=== PATIENT | male | born 1970 | race Two or more races ===

== ENCOUNTER → 2017-12-11 | Outpatient (CLI) | payer OTHER ==
[~2017-12-11] MED LIST: ASPI81TA27 PO; ATOR20TA50 PO; CARV12.544 PO; CHOL100079 OR; CLOP75TA41 PO; LOSA25TA40 PO; NITR0.4S29 SL
== END | disposition home or self-care (01) ==
LOC: Rad HDHVI 09:00
PROVIDERS: ATTEND Internal Medicine Cardiovascular Disease
DX: I25.110 Atherosclerotic heart disease of native coronary artery with unstable angina pectoris (principal); E78.5 Hyperlipidemia, unspecified; I48.0 Paroxysmal atrial fibrillation
CPT/HCPCS: 93306; 93880

== ENCOUNTER 2018-12-25 21:54 | Inpatient (IN) | payer OTHER ==
[~2018-12-25] VITALS: Ht 190.5 cm; Wt 124.9 kg
[~2018-12-25 21:54] MED LIST changes: +ASPI-404 PO; -ASPI81TA27 PO; +LOSA25TA38 PO; -LOSA25TA40 PO
[2018-12-25 22:36] LABS: Basophils # (auto) 0 uL; Basophils % (auto) 0.3 % (0.0-2.0); Eosinophils # (auto) 0.1 uL; Eosinophils % (auto) 1.1 % (0.0-7.0); Hematocrit 44.8 % (41.0-53.0); Hemoglobin 15.5 g/dL (13.5-17.5); Lymphocytes # (auto) 2.9 uL; Lymphocytes % (auto) 33.9 % (10.0-50.0); Mean Corpuscular Hemoglobin 33.8 pg (28.0-32.0); Mean Corpuscular Hgb Conc. 34.7 g/dL (32.0-36.0); Mean Corpuscular Volume 97.5 fL (80.0-100.0); Monocytes # (auto) 0.6 uL; Monocytes % (auto) 7.3 % (0.0-12.0); Neutrophils # (auto) 4.9 uL; Neutrophils % (auto) 57.4 % (37.0-80.0); Nucleated Red Blood Cells % 0.1 %; Platelet Count (auto) 265 10^3/uL (140-450); Red Blood Cells 4.59 10^6/uL (4.5-5.90); White Blood Cell 8.6 10^3/uL (4.4-10.8)
[2018-12-25 22:52] LABS: Albumin 3.7 g/dL (3.4-5.0); Anion Gap 9 (5-15); Blood Urea Nitrogen 12 mg/dL (7-18); Calcium 8.8 mg/dL (8.5-10.1); Carbon Dioxide 23 mmol/L (21-32); Chloride 106 mmol/L (98-107); Glucose 180 mg/dL (74-106); Potassium 3.5 mmol/L (3.5-5.1); Sodium 138 mmol/L (136-145)
[2018-12-25 22:58] LABS: Alanine Aminotransferase 60 U/L (16-61); Alkaline Phosphatase 65 U/L (45-117); Aspartate Aminotransferase 22 U/L (15-37); GFR African American 122 mL/min; GFR Non-African American 100 mL/min; Total Protein 7.4 g/dL (6.4-8.2)
[2018-12-25 23:27] LABS: INR 1.01 (0.9-1.15)
[2018-12-26] MEDS ORDERED: CLOPIDOGREL BISULFATE 75 MG TAB PO ONE (12:45)
--- NOTE | 2018-12-26 14:05 | NUR ---
RECEIVED REPORT FROM RAVEN LOPEZ.
--- NOTE | 2018-12-26 14:25 | NUR ---
Telemetry admit from [facility] admitted to Telemetry unit after SBAR received. Patient oriented to MOUNIKA REDDING, primary RN, unit, room, bed, and unit policies regarding patient care and visiting hours. Patient now on continuous telemetry monitoring, tele box # 11 and telemetry reading on arrival to unit is SINUS RHYTHM. Patient placed on bedside oxygen, weighed by bedscale and encouraged to call if they need something. All questions and concerns addressed, patient verbalized understanding.
[2018-12-26 17:00] VITALS: BP 137/68
--- NOTE | 2018-12-26 20:03 | NUR ---
PLACED CALL TO DR. GUO FOR PAIN MEDS. AWAITING CALL BACK.
[2018-12-26] MEDS: HYDROcodone-ACET 10/325MG TAB PO PRN (20:42)
[2018-12-26] MEDS: PANTOPRAZOLE 40 MG TAB PO SCH (21:41)
[2018-12-26] MEDS: CARVEDILOL 3.125 MG TAB PO SCH (21:42)
[2018-12-26 22:00] VITALS: BP 126/73
[2018-12-27 06:04] VITALS: BP 129/82
--- NOTE | 2018-12-27 08:25 | NUR ---
Opening Note Assumed care of patient, he is A & O x 4, no s/s of distress. Patient is otherwise comfortable at this time. POC discussed. Bed is in lowest, locked position, call light within reach. Will continue to monitor Q1h and PRN.
[2018-12-27 09:00] VITALS: BP 121/62
[2018-12-27] MEDS: ASPirin-EC 81 mg tab PO SCH (09:41)
[2018-12-27] MEDS: PANTOPRAZOLE 40 MG TAB PO SCH ×2 (09:41→21:53)
[2018-12-27] MEDS: LISINOPRIL 5 MG TAB PO SCH (09:42)
[2018-12-27] MEDS: ENOXAPARIN SOD 40 MG/0.4 ML SYRINGE SC SCH (09:42)
[2018-12-27] MEDS: CARVEDILOL 3.125 MG TAB PO SCH ×2 (09:43→21:52)
[2018-12-27] MEDS: HYDROcodone-ACET 10/325MG TAB PO PRN ×2 (09:45→21:55)
[2018-12-27] MEDS ORDERED: PANTOPRAZOLE 40 MG TAB PO SCH (10:00)
--- NOTE | 2018-12-27 12:40 | NUR ---
Dr. Morgan at bedside. Requesting medical records from [facility], Echo and Angiogram results.
[2018-12-27 13:00] VITALS: BP 128/67
--- NOTE | 2018-12-27 15:00 | NUR ---
[place] [facility] [place]
[2018-12-27 17:00] VITALS: BP 104/62
--- NOTE | 2018-12-27 19:00 | NUR ---
Opening Shift Note Assumed care of patient, awake and alert. No S/S of distress/SOB or pain. Instructed on POC and to call for assist PRN, will continue to monitor for changes Q1hr and PRN.
[2018-12-27] MEDS: ATORVASTATIN 20 MG TAB PO SCH (21:53)
[2018-12-27 22:00] VITALS: BP 123/74
--- NOTE | 2018-12-28 00:30 | NUR ---
Continuation Of Care Assumed care of patient, eyes closed, respirations even and unlabored, appears asleep. Bed in lowest locked position, side rails up x2, call light within reach, guards at beside. No S/S of distress/SOB or pain. Instructed on POC and to call for assist PRN, will continue to monitor for changes Q1hr and PRN.
--- NOTE | 2018-12-28 00:30 | NUR ---
Endorsed care to Alejandra CARBAJAL.
[2018-12-28 05:00] VITALS: BP 121/69
--- NOTE | 2018-12-28 06:27 | NUR ---
Closing Note Patient lying in bed, eyes closed, respirations even and unlabored, appears asleep. Patient awakens to name and touch. No s/s of distress. Bed in lowest locked position, side rails up x2, call light within reach, guards at bedside. Will continue to monitor and endorse care to dayshift RN.
[2018-12-28 09:00] VITALS: BP 124/69
[2018-12-28] MEDS: CARVEDILOL 3.125 MG TAB PO SCH ×2 (09:24→21:33)
[2018-12-28] MEDS: LISINOPRIL 5 MG TAB PO SCH (09:24)
[2018-12-28] MEDS: ASPirin-EC 81 mg tab PO SCH (09:24)
[2018-12-28] MEDS: PANTOPRAZOLE 40 MG TAB PO SCH ×2 (09:25→21:34)
[2018-12-28] MEDS: ENOXAPARIN SOD 40 MG/0.4 ML SYRINGE SC SCH (09:25)
[2018-12-28] MEDS ORDERED: METOPROLOL TARTRATE 25 MG TAB PO SCH (10:00)
[2018-12-28 13:00] VITALS: BP 132/67
[2018-12-28 17:00] VITALS: BP 115/74
[2018-12-28] MEDS: HYDROcodone-ACET 10/325MG TAB PO PRN (19:21)
[2018-12-28] MEDS: ATORVASTATIN 20 MG TAB PO SCH (21:34)
[2018-12-28 22:00] VITALS: BP 105/64
--- NOTE | 2018-12-28 23:33 | NUR ---
Dr. Morgan at patient bedside. Patient updated on plan of care.
[2018-12-29 05:00] VITALS: BP 101/58
[2018-12-29 08:10] VITALS: BP 140/71
[2018-12-29 09:00] VITALS: BP 140/71
[2018-12-29] MEDS: PANTOPRAZOLE 40 MG TAB PO SCH ×2 (09:47→21:55)
[2018-12-29] MEDS: CARVEDILOL 3.125 MG TAB PO SCH ×2 (09:47→21:56)
[2018-12-29] MEDS: ASPirin-EC 81 mg tab PO SCH (09:47)
[2018-12-29] MEDS: LISINOPRIL 5 MG TAB PO SCH (09:48)
[2018-12-29] MEDS: ENOXAPARIN SOD 40 MG/0.4 ML SYRINGE SC SCH (09:48)
[2018-12-29 13:00] VITALS: BP 109/65
[2018-12-29 15:40] LABS: INR 1.04 (0.9-1.15); Partial Thromboplastin Time 28.8 sec (23.64-32.05)
[2018-12-29 17:00] VITALS: BP 152/88
--- NOTE | 2018-12-29 19:07 | NUR ---
Endorsed care to NOC RN.
--- NOTE | 2018-12-29 20:29 | NUR ---
IV insertion IV access to right hand obtained, via clean sterile technique by inserting 20 gauge catheter after first attempt. IV secured properly. No trauma to site. Patient tolerated procedure well.
[2018-12-29] MEDS: ATORVASTATIN 20 MG TAB PO SCH (21:55)
[2018-12-29 21:56] VITALS: BP 115/74
[2018-12-30 05:00] VITALS: BP 138/85
[2018-12-30] MEDS: ASPirin-EC 81 mg tab PO SCH (07:47)
[2018-12-30] MEDS: CARVEDILOL 3.125 MG TAB PO SCH (07:47)
[2018-12-30] MEDS: LISINOPRIL 5 MG TAB PO SCH (07:48)
[2018-12-30 08:02] VITALS: BP 122/61
[2018-12-30 09:00] VITALS: BP 122/61
[2018-12-30 09:25] VITALS: BP 122/61
[2018-12-30] MEDS: ENOXAPARIN SOD 40 MG/0.4 ML SYRINGE SC SCH (09:42)
[2018-12-30] MEDS: PANTOPRAZOLE 40 MG TAB PO SCH (09:42)
--- NOTE | 2018-12-30 10:35 | NUR ---
Discharge instructions given as ordered. Encourage to follow up with primary care provider as instructed. All questions and concerns addressed. Patient verbalized understanding. IV removed with catheter intact, pressure dressing applied. Telemetry unit returned to ICU. Patient currently awaiting transfer vehicle, accompanied by senior living personnel. No distress noted at time of discharge.
== END 2018-12-30 10:35 | DRG 303 ==
LOC: ER 21:56 → EEVIPCON 21:56 → TELE 21:57 → TELE-EAST 12-26 14:34
PROVIDERS: ADMIT Internal Medicine; ATTEND Internal Medicine
DX: I25.110 Atherosclerotic heart disease of native coronary artery with unstable angina pectoris (principal); E11.65 Type 2 diabetes mellitus with hyperglycemia; I10 Essential (primary) hypertension; E78.5 Hyperlipidemia, unspecified; J45.909 Unspecified asthma, uncomplicated; E66.9 Obesity, unspecified; Z68.34 Body mass index [BMI] 34.0-34.9, adult; Z82.49 Family history of ischemic heart disease and other diseases of the circulatory system; Z79.899 Other long term (current) drug therapy
CPT/HCPCS: 36415; 71045; 80053; 83735; 83880; 84484; 85025; 85610; 85730; 93005; G0378